=== PATIENT | female | born 1990 | race African-American/Black ===

== ENCOUNTER 2017-08-22 09:47 | Emergency (ER) | payer OTHER, MEDICAID ==
[~2017-08-22] VITALS: Ht 165.1 cm; Wt 57.0 kg
[2017-08-22 11:57] LABS: CLARITY URINE CLEAR (CLEAR); COLOR URINE YELLOW (YELLOW); KETONES URINE NEGATIVE (NEGATIVE); LEUKOCYTE ESTERASE URINE NEGATIVE (NEGATIVE); NITRITE URINE NEGATIVE (NEGATIVE); OCCULT BLOOD URINE NEGATIVE (NEGATIVE); PROTEIN URINE NEGATIVE (NEGATIVE); SPECIFIC GRAVITY URINE 1.007 (1.005-1.030); UROBILINOGEN URINE 0.2 E.U./dL (0.2-1.0)
[2017-08-22 12:23] LABS: BASOPHILS % 0.6 % (0.0-2.0); HEMATOCRIT. 35.7 % (36.0-48.0); HEMOGLOBIN. 11.6 g/dL (12.0-16.0); LYMPHOCYTES % 51.9 % (20.0-50.0); MEAN CORPUSCULAR HEMOGLOBIN 25.3 pg (28.0-32.0); MEAN CORPUSCULAR VOLUME 77.6 fL (81.0-99.0); MEAN PLATELET VOLUME 7.3 fl (7.4-10.4); MONOCYTES % 8.6 % (2.0-8.0); NEUTROPHILS % 37.9 % (40.0-76.0); PLATELET 250 x1000/uL (130-400); RED CELL DISTRIBUTION WIDTH 14.7 % (11.6-14.6)
[2017-08-22 12:28] LABS: CHLORIDE 106 mEq/L (98-107)
[2017-08-22] MEDS ORDERED: SODIUM CHLORIDE 0.9% 1,000 ML IV ONE (12:30)
[2017-08-22 12:35] LABS: INR 1.1; PROTHROMBIN TIME 11.6 sec (9.4-11.6)
[2017-08-22 12:38] LABS: CARBON DIOXIDE 26 mEq/L (21-32)
[2017-08-22 13:15] LABS: HCG SCREEN NEGATIVE
[2017-08-22 15:29] VITALS: BP 108/70
== END 2017-08-22 16:13 | disposition home or self-care (01) ==
LOC: ER 10:39
DX: R06.02 Shortness of breath (principal); R07.9 Chest pain, unspecified; M54.5 Low back pain; R10.9 Unspecified abdominal pain
CPT/HCPCS: 36415; 71045; 80053; 81003; 84484; 84703; 85025; 85610; 93005; 96360; 96361; 99285; J7030; Z7610